=== PATIENT | female | born 1960 | race Caucasian/White ===

== ENCOUNTER 2017-06-02 20:49 | Observation (INO) | payer BC ==
[~2017-06-02 20:49] MED LIST: ISOVUE-370 76%-LOCM 1 ML ONE
--- NOTE | 2017-06-02 22:02 | RAD ---
PORTABLE AP CHEST: Date: 06-02-17 History: Syncopal episode. Weakness with nausea and vomiting. Diaphragmatic according to EMS. Comparison: 01-30-17 FINDINGS: Cardiac silhouette and pulmonary vasculature are within normal limits. There is symmetric pleural th ickening again present. Lungs remain hyperexpanded but are clear. Vascular calcifications are again seen in the thoracic aorta. There has been no interval change when compared to the prior exam. IMPRESSION: Stable chest without evidence of an acute cardiopulmonary process. POS: [facility]
[2017-06-02 22:09] LABS: Prothrombin Time 13.5 SEC (12.0-14.7)
--- NOTE | 2017-06-02 22:15 | CT ---
NONCONTRAST CT HEAD: Date: 06-02-17 History: Weakness all day. Syncopal episode with nausea and vomiting. Comparison: None available. FINDINGS: There is no evidence of hemorrhage, acute infarction, mass effect or midline shift. Ventricular syst em is normal in size, shape, and position. There is mild cerebral volume loss. Tiny air fluid levels seen in the right sphenoid sinus. The remainder of the visualized paranasal sinuses and mastoid air cells are clear. Calvarial structures are intact. IMPRESSION: 1. No acute intracranial abnormalities demonstrated. 2. Tiny air fluid level right sphenoid antrum. POS: [facility]
[2017-06-02 22:24] LABS: ALT (SGPT) 50 U/L (8-55); AST (SGOT) 39 U/L (5-34); Alkaline Phosphatase 81 U/L (40-150); Anion Gap 12 mmol/L (10-20); BUN (Urea Nitrogen) 13 mg/dL (9.8-20.1); Bilirubin, Total 0.5 mg/dL (0.2-1.2); CK (CPK) 146 U/L (29-168); Calc. Creatinine Clearance 0 mL/min (70-130); Calcium 9.2 mg/dL (7.8-10.44); Carbon Dioxide 27 mmol/L (22-29); Chloride 105 mmol/L (98-107); Estimated GFR-MDRD 73; Globulin 2.2 g/dL (2.4-3.5); Lipase 50 U/L (8-78); Protein, Total 5.9 g/dL (6.0-8.3)
[2017-06-02 22:27] LABS: Troponin I Less than 0.010 ng/mL (< 0.028)
[2017-06-02 22:32] LABS: #Eosinphils 0.1 thou/uL (0.0-0.7); #Lymphocytes 1.1 thou/uL (1.20-3.40); #Monocytes 0.8 thou/uL (0.11-0.59); #Neutrophils 11.1 thou/uL (1.40-6.50); %Basophils 0.3 % (0.0-1.0); %Eosinophils 0.8 % (0.0-10.0); %Lymphocytes 8.3 % (21.0-51.0); %Monocytes 5.9 % (0.0-10.0); Hematocrit 40.4 % (36.0-47.0); Mean Platelet Volume 12.4 fL (7.4-10.4); Red Blood Cell (RBC) Count 4.02 mill/uL (4.20-5.40); White Blood Cell (WBC) Count 13.1 thou/uL (4.8-10.8)
--- NOTE | 2017-06-02 23:30 | CT ---
CT ANGIOGRAM THORAX WITH IV CONTRAST AND 3D RECONSTRUCTIONS: Date: 06-02-17 History: Syncopal episode. Elevated D-Dimer. Comparison: None available. FINDINGS: No filling defects are seen in the pulmonary arteries to suggest a pulmonary embolus. Vascular calcifications and atherosclerotic plaque are seen in the thoracic aorta. The thoracic aort a is normal in caliber. Vascular calcifications are seen at the origin of the great vessels. Coronary artery calcifications are seen. There is a calcified granuloma in the right lower lobe as well as in the left upper lobe. Minimal de pendent bibasilar atelectasis is present but the lungs are otherwise clear. There is no noncalcified pulmonary nodule, mass, or pleural effusion seen. Visualized upper abdomen demonstrates a normal CT appearance for arterial phase of imaging. IMPRESSION: 1. No CT evidence of a pulmonary embolus. 2. Prominent vascular calcifications in the coronary arteries and in the thoracic aorta. POS: [facility]
[2017-06-02 23:59] LABS: Bilirubin Negative (Negative); Blood, Urine Trace (Negative); Glucose, Urine (Dipstick) Negative (Negative); Ketone, Urine Negative (Negative); Nitrite Negative (Negative); Protein, Urine (Dipstick) Negative (Neg-Trace); Urobilinogen 0.2 mg/dL (0.2-1.0)
[2017-06-03 00:18] LABS: Bacteria/HPF None Seen HPF (None Seen); Hyaline Casts/LPF 0-3 HYALINE CAST LPF (0-3 Hyaline); RBC/HPF 0-3 HPF (0-3); Squamous Epithelial None Seen HPF (0-3); WBC/HPF 0-3 HPF (0-3)
[2017-06-03 01:23] LABS: Troponin I 0.019 ng/mL (< 0.028)
[2017-06-03] MEDS ORDERED: Ondansetron ODT 4 MG TAB SL PRN (01:33)
[2017-06-03] MEDS ORDERED: Ondansetron HCl/PF 4 MG/2 ML Vial IVP PRN ×2 (01:33→07:43)
[2017-06-03] MEDS ORDERED: Sodium Chloride 0.9% 1,000 ML IV SCH (01:33)
[2017-06-03 02:12] VITALS: BMI 20.7
[2017-06-03] MEDS ORDERED: Zolpidem Tartrate 5 MG TAB PO PRN (07:43)
[2017-06-03] MEDS ORDERED: Mag-Al 1200 mg/1200 mg/30 ML UDCUP PO PRN (07:43)
[2017-06-03] MEDS ORDERED: Ondansetron ODT 4 MG TAB PO PRN (07:43)
[2017-06-03] MEDS ORDERED: Acetaminophen 325 MG TAB PO PRN (07:43)
[2017-06-03] MEDS ORDERED: Milk Of Magnesia 30 ML UDCUP PO PRN (07:43)
[2017-06-03] MEDS ORDERED: Loperamide HCl 2 MG CAP PO PRN (07:43)
[2017-06-03] MEDS ORDERED: Senokot 8.6 MG TAB PO PRN (07:43)
[2017-06-03] MEDS: Sodium Chloride 0.9% 1,000 ML IV SCH ×3 (08:54→19:37)
[2017-06-03] MEDS: Folic Acid 1 MG TAB PO SCH (08:55)
[2017-06-03] MEDS: Famotidine 20 MG TAB PO SCH ×2 (08:55→19:39)
[2017-06-03] MEDS: Cyanocobalamin (Vitamin B-12) 1,000 MCG TAB PO SCH (08:55)
[2017-06-03] MEDS: Multivitamin W/ Minerals 1 TAB PO SCH (08:55)
[2017-06-03] MEDS ORDERED: Aspirin 325 mg Enteric Coated Tablet PO SCH (09:00)
--- NOTE | 2017-06-03 09:46 | HP ---
PRIMARY CARE PHYSICIAN: [facility] call admission. REASON FOR ADMISSION: Volume depletion, transient hypotension, diarrhea. HISTORY OF PRESENT ILLNESS: A 56-year-old female who was recently admitted in our hospital. At [facility] she had echocardiography done which showed mild diastolic dysfunction and cardiac catheterization showed minimal coronary artery disease. This was in in January 2017. At that time the patient was pres cribed lisinopril 2.5 p.o. daily. She was taking aspirin and Crestor 10 mg p.o. daily. Yesterday, around supper time, the patient had an episode of diarrhea which was loose. She was not able to see that, but she was feeling near syncopal episode. She does not have any recall of event. The patient had 2 episodes of diarrhea at home and her blood pressure was running low. She was in coherent and that is why the patient's called 911. When paramedics came to her house at [facility] time her blood pressure was low and she was brought to the ER. In the emergency room the patient was also having relatively low blood pressure. The patient had el evated D-dimer and that is why they did a CT angio which was negative for pulmonary embolism. All r outine blood tests were unremarkable other than she had chronic thrombocytopenia. She was admitted from the ER, she received IV fluid in the emergency room. When I saw this patient at that time, the patient's blood pressure improved, but she was still having orthostatic hypotension. She was feeli ng weak. REVIEW OF SYSTEMS: The following complete review of systems was negative, unless otherwise mentioned in the HPI or below: Constitutional: Weight loss or gain, ability to conduct usual activities. Skin: Rash, itching. Eyes: Double vision, pain. ENT/Mouth: Nose bleeding, neck stiffness, pain, tenderness. Cardiovascular: Palpitations, dyspnea on exertion, orthopnea. Respiratory: Shortness of breath, wheezing, cough, hemoptysis, fever or night sweats. Gastrointestinal: Poor appetite, abdominal pain, heartburn, nausea, vomiting, constipation, or diarrhea. Genitourinary: Urgency, frequency, dysuria, nocturia. Musculoskeletal: Pain, swelling. Neurologic/Psychiatric: Anxiety, depression. Allergy/Immunologic: Skin rash, bleeding tendency. Please see my HPI for pertinent positives and negatives. All other review of systems reviewed and n egative except as mentioned in the HPI. PAST MEDICAL HISTORY: 1. Minimal coronary artery disease based on cardiac catheterization in 01/2017. 2. Hypertension history, on lisinopril. 3. Dyslipidemia on Crestor. PAST SURGICAL HISTORY: Hysterectomy, cardiac catheterization in 01/2017. PAST PSYCHIATRIC HISTORY: Reviewed and negative. ALLERGIES: CODEINE. CURRENT HOME MEDICATIONS: Aspirin 81 mg p.o. daily, lisinopril 2.5 mg p.o. daily, Crestor 10 mg p.o . daily. EMERGENCY ROOM COURSE: The patient has received IV fluid. SOCIAL HISTORY: The patient lives at home by herself. No history of tobacco, alcohol or illicit dr ug abuse. FAMILY HISTORY: No strong family history of premature coronary artery disease, stroke or cancer. PHYSICAL EXAMINATION: VITAL SIGNS: On arrival to the emergency room, blood pressure 145/70, pulse 71, respiratory rate 14 , temperature 97.7, saturation 99% on room air, weight 58.9 kilograms. After admission, her blood p ressure on supine position 120/58, standing position blood pressure drops to 109/72. GENERAL: The patient is currently alert, awake, no obvious acute distress. HEENT: Head; normocephalic, atraumatic. Eyes: Pupils round, reactive to light. Extraocular muscl e intact. ENT: Oropharynx within normal limits. Moist mucous membranes. No oral lesions. No pha ryngeal erythema or exudate. NECK: Supple. Range of motion is normal. No meningeal signs of irritation. LUNGS: Clear to auscultation without any rhonchi or rales. CARDIAC: S1, S2 regular without any murmur. ABDOMEN: Soft and benign without any tenderness. EXTREMITIES: No edema. NEUROLOGIC: Nonfocal examination. PSYCHIATRIC: Normal affect. X-RAYS: Chest x-ray based on my review, no acute cardiopulmonary process. CT angio based on my rev iew, no evidence of pulmonary embolism. EKG based on my review, normal sinus rhythm without any ac seminole ischemic changes. SIGNIFICANT LABORATORY: CBC: WBC 13.1, hemoglobin 13.6, platelet 89. INR 1.0, D-dimer 5.56. BMP: Sodium 140, potassium 3.6, chloride 105, carbon dioxide 27, BUN 13, creatinine 0.81, glucose 103, calcium 9.2, lactic acid 1.2. LFTs: AST 39, ALT 50, alkaline phosphatase 81, albumin 3.7, lipase 50. TSH 11.00, free T4 0.72. C ardiac enzymes negative x2, urinalysis normal. Blood culture is negative. ASSESSMENT AND PLAN: 1. Acute diarrhea, suspecting viral etiology. The patient does not have any longer further diarrhe a at this point. We will monitor clinically in hospital. If she does have recurrent diarrhea then we will send stool for infection workup. At this point the patient does not need any antibiotic the rapy. We will treat symptomatically. 2. Acute hypotension, likely related with her use of antihypertensive medication as well as volume depletion with the diarrhea. The patient does have orthostatic hypotension and that can be explaine d by volume depletion, but we will rule out adrenal insufficiency by checking random cortisol. The patient is on IV fluid and we will hold on antihypertensive medication. 3. Hypothyroidism. The patient does have elevated TSH. She was on thyroid medication, but that me dication was discontinued. At this point, we will continue with Synthroid 25 mcg p.o. daily. 4. Macrocytosis. We will start folic acid and vitamin B12 on her regimen. 5. Chronic thrombocytopenia. Her platelet count is stable. The patient is following Dr. Iqbal on an outpatient basis. 6. Elevated D-dimer. The patient had hypotension and that is why we are worried about pulmonary em bolism, but CT angio is completely negative for thromboembolic disorder. 7. Minimal coronary artery disease. We will continue aspirin 81 mg p.o. daily, Crestor 10 mg p.o. daily. 8. Dyslipidemia. We will continue Crestor 10 mg p.o. daily. 9. Deep venous thrombosis prophylaxis not needed because we are expecting discharge in 24 hours. 10. Gastrointestinal prophylaxis, Pepcid 20 mg p.o. b.i.d. 11. CODE STATUS: The patient is full code. The patient's is surrogate decision maker. Disposition plan based on clinical course.
[2017-06-04] MEDS: Sodium Chloride 0.9% 1,000 ML IV SCH (03:50)
[2017-06-04 04:34] LABS: #Eosinphils 0.3 thou/uL (0.0-0.7); #Lymphocytes 1.6 thou/uL (1.20-3.40); #Monocytes 0.4 thou/uL (0.11-0.59); #Neutrophils 2.2 thou/uL (1.40-6.50); %Eosinophils 5.9 % (0.0-10.0); %Lymphocytes 35.6 % (21.0-51.0); %Monocytes 8.6 % (0.0-10.0); Hematocrit 32.2 % (36.0-47.0); Mean Platelet Volume 13.7 fL (7.4-10.4); White Blood Cell (WBC) Count 4.6 thou/uL (4.8-10.8)
[2017-06-04 05:01] LABS: ALT (SGPT) 34 U/L (8-55); AST (SGOT) 30 U/L (5-34); Alkaline Phosphatase 63 U/L (40-150); Anion Gap 8 mmol/L (10-20); BUN (Urea Nitrogen) 10 mg/dL (9.8-20.1); Bilirubin, Total 0.4 mg/dL (0.2-1.2); Calc. Creatinine Clearance 88 mL/min (70-130); Calcium 8.7 mg/dL (7.8-10.44); Carbon Dioxide 26 mmol/L (22-29); Chloride 111 mmol/L (98-107); Estimated GFR-MDRD 89; Globulin 1.9 g/dL (2.4-3.5); Protein, Total 4.9 g/dL (6.0-8.3)
[2017-06-04] MEDS ORDERED: Levothyroxine Sodium 25 MCG TAB PO SCH (06:00)
[2017-06-04 07:49] VITALS: BP 159/78; TEMP 98.4
--- NOTE | 2017-06-04 08:36 | PDOC.PN ---
- Subjective Encounter Start Date: 06/04/17 Encounter Start Time: 08:34 - Objective Resuscitation Status: Resuscitation Status FULL:Full Resuscitation MAR Reviewed: Yes Vital Signs & Weight: Vital Signs (12 hours) Temp Pulse Resp BP BP Pulse Ox 06/04/17 08:00 98.4 F 53 L 16 06/04/17 07:24 98.4 F 53 L 16 159/78 H 99 06/04/17 03:51 98.8 F 55 L 16 124/67 98 06/03/17 23:40 97.8 F 57 L 18 139/67 98 Weight Admit Weight 132 lb 8 oz Weight 136 lb 1.6 oz I&O: 06/03/17 06/04/17 06/05/17 06:59 06:59 06:59 Intake Total 240 4246 Output Total 2850 Balance 240 1396 Result Diagrams: 06/04/17 03:48 06/04/17 03:48 Phys Exam - Physical Examination Constitutional: NAD HEENT: moist MMs, sclera anicteric Neck: no nodes, no JVD Respiratory: no wheezing, no rales, no rhonchi Cardiovascular: no significant murmur, no rub Gastrointestinal: soft, non-tender, no distention Musculoskeletal: no edema Psychiatric: normal affect Skin: no rash, normal turgor Dx/Plan (1) Volume depletion Code(s): E86.9 - VOLUME DEPLETION, UNSPECIFIED Status: Acute (2) Viral gastroenteritis Code(s): A08.4 - VIRAL INTESTINAL INFECTION, UNSPECIFIED Status: Acute (3) Near syncope Status: Acute - Plan Discharge Summary: [id number]
[2017-06-04] MEDS: Famotidine 20 MG TAB PO SCH (09:22)
[2017-06-04] MEDS: Cyanocobalamin (Vitamin B-12) 1,000 MCG TAB PO SCH (09:22)
[2017-06-04] MEDS: Multivitamin W/ Minerals 1 TAB PO SCH (09:23)
[2017-06-04] MEDS: Folic Acid 1 MG TAB PO SCH (09:23)
--- NOTE | 2017-06-04 12:55 | DIS ---
DATE OF ADMISSION: 06/03/2017 DATE OF DISCHARGE: 06/04/2017 PRIMARY DISCHARGE DIAGNOSES: Volume depletion and near syncope secondary to viral gastroenteritis. The patient's antihypertensive medication had been held on this hospitalization. She had been given IV fluids. She no longer has any symptoms of dizziness, lightheadedness or near syncope. Her bloo d pressure is in fact in the high of 150 systolically today. We will stop IV fluids and restart her home blood pressure medication and discharge her home today. Her nausea is completely resolved as well. For discharge physical examination, labs and imaging, please refer to my progress note from earlier today. DISCHARGE MEDICATIONS: Reviewed and reconciled. Please refer to EMR for details. DISCHARGE PLAN/DISPOSITION: 1. Discharge home today with follow up with PCP in 1 week. 2. The patient has a 6-month followup with her soaker meat, this coming Friday. She has been advi sed to keep her appointment. 3. Continue home medications. 4. The patient has been advised to stay well hydrated.
== END 2017-06-04 11:06 | disposition home or self-care (01) ==
LOC: ERS 20:49 → 2SW 06-03
PROVIDERS: ADMIT Internal Medicine; ATTEND Internal Medicine
DX: A08.4 Viral intestinal infection, unspecified (principal); I95.1 Orthostatic hypotension; D69.6 Thrombocytopenia, unspecified; I25.10 Atherosclerotic heart disease of native coronary artery without angina pectoris; E78.5 Hyperlipidemia, unspecified; E03.9 Hypothyroidism, unspecified; I10 Essential (primary) hypertension; Z88.5 Allergy status to narcotic agent; Z88.8 Allergy status to other drugs, medicaments and biological substances; Z79.82 Long term (current) use of aspirin; Z79.899 Other long term (current) drug therapy; Z90.710 Acquired absence of both cervix and uterus; Z98.890 Other specified postprocedural states; Z87.891 Personal history of nicotine dependence
CPT/HCPCS: 36415; 70450; 71010; 71275; 80053; 81003; 81015; 82533; 82550; 82553; 83605; 83690; 83880; 84439; 84443; 84484; 85025; 85379; 85610; 85730; 86850; 86900; 86901; 87040; 93005; 96360; 96361; A4216; G0378

== ENCOUNTER 2025-05-24 11:36 | Outpatient (CLI) | payer MEDICARE | END 2025-05-24 11:37 | disposition home or self-care (01) | LOC: BICRAD 11:36 | PROVIDERS: ATTEND Orthopaedic Surgery | DX: M54.6 Pain in thoracic spine (principal) | CPT/HCPCS: 72070 ==

== ENCOUNTER 2025-07-01 13:23 | Outpatient (CLI) | payer MEDICARE | END 2025-07-01 13:24 | disposition home or self-care (01) | LOC: RAD 13:23 | PROVIDERS: ATTEND Orthopaedic Surgery | DX: M54.6 Pain in thoracic spine (principal) | CPT/HCPCS: 71046 ==

== ENCOUNTER 2025-07-19 08:01 | Outpatient (CLI) | payer MEDICARE | END 2025-07-19 08:02 | disposition home or self-care (01) | LOC: BICCT 08:01 | PROVIDERS: ATTEND Orthopaedic Surgery | DX: M54.16 Radiculopathy, lumbar region (principal); S22.089A Unspecified fracture of T11-T12 vertebra, initial encounter for closed fracture; S32.019A Unspecified fracture of first lumbar vertebra, initial encounter for closed fracture; S32.029A Unspecified fracture of second lumbar vertebra, initial encounter for closed fracture; S32.049A Unspecified fracture of fourth lumbar vertebra, initial encounter for closed fracture; S32.039A Unspecified fracture of third lumbar vertebra, initial encounter for closed fracture; S32.059A Unspecified fracture of fifth lumbar vertebra, initial encounter for closed fracture | CPT/HCPCS: 72131 ==